=== PATIENT | male | born 1995 | race Caucasian/White ===

== ENCOUNTER 2017-02-06 10:13 | Emergency (ER) | payer SELFPAY ==
[~2017-02-06] VITALS: Ht 175.3 cm; Wt 76.0 kg
[2017-02-06 10:25] VITALS: Ht 175.3 cm; Wt 76.0 kg
[2017-02-06] MEDS ORDERED: LIDOCAINE 1% (MDV) 20 ML INJ INJ STA (10:42)
--- NOTE | 2017-02-06 11:18 | ERD ---
ER Documentation Chief Complaint Date/Time DATE: 02/06/17 TIME: 11:16 Chief Complaint neck lac with metal HPI This 22-year-old male presents after cutting a piece of metal and having a piece fly back in causing a laceration on the right side of his neck. Denies any active bleeding, difficulty swallowing, difficulty breathing, loss of consciousness. His tetanus is up-to-date. ROS All systems reviewed and are negative except as per history of present illness. Medications Home Meds Active Scripts Ibuprofen* (Motrin*) 600 Mg Tab, 600 MG PO Q6, #15 TAB Prov:TANYA SERRATO MD 02/06/17 Allergies Allergies: Coded Allergies: No Known Allergy (Unverified , 02/06/17) PMhx/Soc Medical and Surgical Hx: pt denies Medical Hx, pt denies Surgical Hx History of Surgery: No Anesthesia Reaction: No Hx Neurological Disorder: No Hx Respiratory Disorders: No Hx Cardiac Disorders: No Hx Psychiatric Problems: No Hx Miscellaneous Medical Probl: No Hx Alcohol Use: Yes Hx Substance Use: Yes (marijuana) Hx Tobacco Use: Yes Smoking Status: Current every day smoker Physical Exam Vitals Vital Signs Date Time Temp Pulse Resp B/P Pulse Ox O2 Delivery O2 Flow Rate FiO2 02/06/17 10:25 98.6 78 18 136/104 99 Physical Exam Const: [] Alert, [id number], speak in complete sentences. Head: Atraumatic Eyes: Normal Conjunctiva ENT: Normal External Ears, Nose and Mouth. Neck: Full range of motion..~ No meningismus.. No deformities. There is approximately 4 cm stellate laceration on the right lateral neck and approximately 4 cm superficial laceration below the cricoid. There is no deformities in the lacerations penetrate through the dermis but not into the muscle or fascia. Resp: Clear to auscultation bilaterally Cardio: Regular rate and rhythm, no murmurs Abd: Soft, non tender, non distended. Normal bowel sounds Skin: No petechiae or rashes Back: No midline or flank tenderness Ext: No cyanosis, or edema Neur: Awake and alert Psych: Normal Mood and Affect Results 24 hrs Current Medications Medications (Trade) Dose Ordered Sig/Av Route PRN Reason Start Time Stop Time Status Last Admin Dose Admin Lidocaine (Xylocaine 1% (Mdv) 20 ml) 20 ml ONCE STAT INJ 02/06/17 10:42 02/06/17 10:44 DC Procedures/MDM AP lateral 2 view soft tissue neck shows no foreign body, no fractures. Impression normal soft tissue neck x-ray. Procedure note-the do not lacerations were irrigated copiously with normal saline. 5 6-0 nylon sutures were used to reapproximate the stellate laceration after 2 cc of lidocaine. The lower laceration was also anesthetized. 2 6-0 nylon sutures were used to approximate the central portion of the wound. Patient tolerated procedure well. Patient presents with a neck laceration without evidence of foreign body, obstruction, abscess, complications. He will be discharged home instructions for wound check in 2 days and suture removal in approximately 1 week. Return sooner for fevers, difficulty breathing, difficult swallowing, new worsening symptoms as directed after instructions . Lacerations appear superficial and suspicion for carotid or jugular injury very low. Departure Diagnosis: Primary Impression: Laceration Condition: Stable TANYA SERRATO MD February 06, 2017 11:18
--- NOTE | 2017-02-06 12:31 | RADRPT ---
PROCEDURE: XR cervical spine CLINICAL INDICATION: Neck laceration, trauma/injury TECHNIQUE: 3 views of the cervical spine were obtained COMPARISON: None available FINDINGS: No fracture or dislocation is identified. Osseous structures appear intact and the vertebral bodies are maintained in height. There is preservation of the lordosis of the cervical spine without caleb lignment identified. Intervertebral disk spaces are maintained in height. No significant degenerat pauline changes are seen. Prevertebral soft tissues are unremarkable. IMPRESSION: Unremarkable cervical spine series. RPTAT: EE .Raffy Díaz MD, Date Time Electronically viewed and signed by .Raffy Díaz MD, on 02/06/2017 12:31 .O/
[2017-02-06] MEDS ORDERED: IBUP-1542 PO (12:37)
== END 2017-02-06 13:26 | disposition home or self-care (01) ==
LOC: FTE 10:13
DX: S11.91XA Laceration without foreign body of unspecified part of neck, initial encounter (principal); F17.210 Nicotine dependence, cigarettes, uncomplicated; W22.8XXA Striking against or struck by other objects, initial encounter; Y92.9 Unspecified place or not applicable
CPT/HCPCS: 72040